=== PATIENT | female | born 1960 | race Caucasian/White ===

== ENCOUNTER 2017-03-08 16:39 | Emergency (ER) | payer BC ==
[~2017-03-08] VITALS: Ht 157.5 cm; Wt 96.3 kg
[~2017-03-08 16:39] MED LIST: ACET-1256 PO; IBUP-103 PO; MULT-506 PO
[2017-03-08 16:46] VITALS: TEMP 36.7; Ht 157.5 cm; Wt 96.3 kg
[2017-03-08] MEDS ORDERED: OXYCODONE HCL IR 5 MG TAB (IMMEDIATE RELEASE) PO STA (17:00)
--- NOTE | 2017-03-08 17:25 | DIAGNOSTIC IMAGING REPORT ---
RIGHT HUMERUS MIN 2 VIEWS ROUTINE CLINICAL HISTORY: right arm pain, fall Right pain COMPARISON: None. DISCUSSION: ] Fracture humeral head and neck. No definite evidence of dislocation. End of the humerus is unremarkable. There is no evidence for soft tissue swelling. IMPRESSION: Impacted comminuted fracture humeral head and neck Electronically signed by: Cameron Malave M.D. 03/08/2017 5:23 PM Dictated Date/Time: 03/08/2017 5:22 PM
[2017-03-08] MEDS ORDERED: OXYC1TAB3 PO (17:52)
--- NOTE | 2017-03-08 17:54 | EMERGENCY ROOM VISIT NOTE ---
History First contact with patient: 16:49 Chief Complaint: FALL Stated Complaint: FELL, RT ARM PAIN- UNABLE TO MOVE History of Present Illness The patient is a 56 year old female who presents to the Emergency Room with complaints of right arm pain after a fall which occurred this afternoon. The patient states that she tripped on a sidewalk and fell onto concrete. She reports severe pain in the right upper arm and difficulty moving the arm. She rates her discomfort an 8/10. She denies any pain of the elbow or wrist. She has an abrasion to her chin but denies any pain of her head or neck. She has not taken anything for pain. She denies previous injuries to this arm. Review of Systems A complete 10 point review of systems was reviewed with the patient with pertinent positives and negatives as per history of present illness. All else were negative. Past Medical/Surgical History Medical Problems: (1) Acute sinusitis (2) Gastroesophageal reflux disease Surgical Problems: (1) Hernia repair Social History Smoking Status: Current Every Day Smoker Alcohol Use: none Drug Use: none Marital Status: Housing Status: lives with family Occupation Status: employed Current/Historical Medications Scheduled Multivitamin (Multivitamin), 1 TAB PO DAILY Scheduled PRN Acetaminophen (Tylenol), 1,000 MG PO Ibuprofen Tab (Advil), 200 MG PO PRN PRN for Pain or Fever Oxycodone Ir (Roxicodone Ir), 1-2 TAB PO Q4H PRN for Pain Allergies Coded Allergies: Penicillins (Verified Allergy, Unknown, 03/08/17) Physical Exam Vital Signs Date Time Temp Pulse Resp B/P (MAP) Pulse Ox O2 Delivery O2 Flow Rate FiO2 03/08/17 18:11 88 20 156/78 97 03/08/17 16:46 36.7 78 20 145/96 96 Room Air Physical Exam VITALS: Vitals are noted on the nurse's note and reviewed by myself. Vital signs stable. GENERAL: This is a 56-year-old female, in no acute distress, nondiaphoretic, well-developed well-nourished. SKIN: There are abrasions to the chin in the anterior chest. No lacerations. HEENT: Normocephalic. PERRLA. EOMI. Nares patent. Mucous membranes moist. Neck is supple without nuchal rigidity. HEART: Regular rate and rhythm without murmurs gallops or rubs. LUNGS: Clear to auscultation bilaterally without wheezes, rales or rhonchi. MUSCULOSKELETAL: There is tenderness to palpation of the right proximal humerus and decreased range of motion of the right shoulder. Radial pulses are 2+. Normal sensation in the right hand. No tenderness of the forearm or elbow. No tenderness of the distal clavicle. NEURO: Patient was alert and oriented to person place and time. Medical Decision & Procedures ER Provider Diagnostic Interpretation: RIGHT HUMERUS MIN 2 VIEWS ROUTINE CLINICAL HISTORY: right arm pain, fall Right pain COMPARISON: None. DISCUSSION: ] Fracture humeral head and neck. No definite evidence of dislocation. End of the humerus is unremarkable. There is no evidence for soft tissue swelling. IMPRESSION: Impacted comminuted fracture humeral head and neck Medications Administered Medications (Trade) Dose Ordered Sig/Gee Route Start Time Stop Time Status Last Admin Dose Admin Oxycodone HCl (Roxicodone Immediate Rel Tab) 5 mg NOW STAT PO 03/08/17 17:00 03/08/17 17:01 DC 03/08/17 17:23 5 MG Medical Decision Differential diagnosis includes fracture, dislocation, contusion, among others. The patient was evaluated as above. She was given 1 tablet OxyIR for pain. X- ray revealed a comminuted, impacted fracture of the right proximal humerus. Case was discussed with Dr. Giron, the on-call orthopedist, who recommended placing the patient in an arm sling and have him follow-up this week in the office. All findings were discussed with the patient. She was placed in an arm sling. She was given a prescription for oxycodone for pain and conservative measures were discussed. She will return here if needed, otherwise will follow-up with Dr. Giron in the office this week. She verbalized understanding of my assessment and treatment plan and was discharged home in good condition. Medication reconciliation: I attest that I have personally reviewed the patient 's current medication list. Blood Pressure Screening: Patient was found to have a slightly elevated blood pressure due to circumstances. I do not believe that the patient requires hypertension monitoring. [place] Drug Monitoring Program Search Results: patient reviewed within database, no issues identified Impression Primary Impression: Proximal humerus fracture Departure Information Dispostion Home / Self-Care Condition GOOD Prescriptions Oxycodone Ir (Roxicodone Ir) 5 Mg Tab 1-2 TAB PO Q4H Y for Pain, #20 TAB For Initial Treatment Prov: Jimena Evans .JEAN 03/08/17 Referrals Anders Torres M.D.(TEENA) (PCP) Jose Manuel Giron M.D. Patient Instructions [facility] Additional Instructions You have been treated in the Emergency Department for a fracture of the proximal humerus. You have received pain medicine in the emergency department which impairs your ability to operate a vehicle. It is illegal for you to drive after receiving these medicines. You have been prescribed OxyIR to be used for pain control. This is a narcotic medication. You cannot drive or consume alcohol while on this medicine. This medicine should only be used for pain that cannot be controlled with over-the- counter pain medicines. For pain control, you can use the following [id number] medicines (if >12 yo): - Regular strength (325mg/tab) Tylenol (acetaminophen) 2 tabs every 4-6 hours as needed. Do not exceed 12 tablets in a 24 hour period. Avoid taking more than 4 grams (4000 mg) of Tylenol per day. This includes any other sources of acetaminophen you may take on a regular basis. - Regular strength (200 mg/tab) Advil (ibuprofen) 1-2 tabs every 4-6 hours as needed. Do not exceed a dose of 3200 mg per day. If this is a recent injury (<24 hrs), ice can be applied to the area of pain for the first 3 days to help decrease pain and inflammation. You have been provided the number for an Orthopaedic Surgeon. You should call this number as soon as possible to establish a follow-up visit from today's Emergency Department visit. Keep the sling in place and to follow-up with orthopedics. You may be more comfortable sleeping in a reclining chair rather than laying flat in bed. Return to the Emergency Department if your current symptoms worsen despite treatment course outlined above, or if you develop any of the following symptoms : intractable pain despite aforementioned treatment course or new onset of numbness or tingling of the arm. Problem Qualifiers Primary Impression: Proximal humerus fracture Encounter type: initial encounter Fracture type: closed Fracture morphology : other fracture Fracture alignment: displaced Laterality: right Qualified Codes: S42.291A - Other displaced fracture of upper end of right humerus, initial encounter for closed fracture
[2017-03-08 18:11] VITALS: BP 156/78; PULSE 88; O2SAT 97
== END 2017-03-08 18:13 | disposition home or self-care (01) ==
LOC: C.EDB 16:40 → C.EDD 18:13
DX: S42.201A Unspecified fracture of upper end of right humerus, initial encounter for closed fracture (principal); S00.81XA Abrasion of other part of head, initial encounter; M79.601 Pain in right arm; W18.30XA Fall on same level, unspecified, initial encounter; Y92.480 Sidewalk as the place of occurrence of the external cause; F17.210 Nicotine dependence, cigarettes, uncomplicated

== ENCOUNTER → 2017-03-16 | Outpatient (CLI) | payer BC ==
[~2017-03-16] MED LIST changes: +OXYC1TAB3 PO
--- NOTE | 2017-03-16 10:55 | DIAGNOSTIC IMAGING REPORT ---
CT RIGHT UPPER EXTREMITY WITHOUT CT DOSE: 1436.09 mGy.cm CLINICAL HISTORY: Right shoulder pain. History of trauma with fracture TECHNIQUE: Helical images were acquired in the transverse plane. Sagittal and coronal reformatted images were acquired. COMPARISON STUDY: Conventional radiographic study dated 03/08/2017 FINDINGS: There are mild degenerative changes present within the acromioclavicular joint. There is no evidence of dislocation. There is a right shoulder joint effusion. There is no pneumothorax. There is a comminuted proximal right humeral fracture with involvement of the humeral head, neck, and greater tuberosity. There is foreshortening at the fracture site. There is mild rotation of humeral head with respect to the humeral neck. The humeral neck is laterally displaced approximately 17 mm. IMPRESSION: 1. Comminuted proximal humeral fracture with involvement of the humeral head, neck, and greater tuberosity. There is foreshortening at the fracture site. There is rotation of the humeral head with respect to the humeral neck, and there is lateral displacement of the humeral neck with respect to the humeral head. 2. Joint effusion. No evidence of dislocation. Electronically signed by: Raghu Canela M.D. 03/16/2017 10:53 AM Dictated Date/Time: 03/16/2017 10:45 AM
== END | disposition home or self-care (01) ==
LOC: C.CTS 10:22
PROVIDERS: ATTEND Orthopaedic Surgery
DX: S42.291A Other displaced fracture of upper end of right humerus, initial encounter for closed fracture (principal); S42.251A Displaced fracture of greater tuberosity of right humerus, initial encounter for closed fracture; X58.XXXA Exposure to other specified factors, initial encounter